=== PATIENT | female | born 1985 | race Caucasian/White ===

== ENCOUNTER → 2020-12-02 11:42 | Outpatient (REF) | payer OTHER, SELFPAY ==
--- NOTE | 2020-12-02 11:52 | ECG_ITS ---
Test Reason : CHEST PAIN Blood Pressure : / mmHG Vent. Rate : 089 BPM Atrial Rate : 089 BPM P-R Int : 148 ms QRS Dur : 082 ms QT Int : 346 ms P-R-T Axes : 070 058 046 degrees QTc Int : 420 ms Normal sinus rhythm Possible Left atrial enlargement Borderline ECG No previous ECGs available Referred By: Lotus Browning Electronically Signed By:MIS CHERRY MD
== END ==
LOC: HO.CARD 11:42
PROVIDERS: PCP Internal Medicine; Visit Provider Internal Medicine
DX: R07.9 Chest pain, unspecified (principal)
CPT/HCPCS: 93005

== ENCOUNTER → 2020-12-24 12:18 | Outpatient (BNVA) | payer OTHER, SELFPAY | PROVIDERS: PCP Internal Medicine; Visit Provider Internal Medicine | DX: R00.2 Palpitations (principal) | CPT/HCPCS: 93005; 99202 ==

== ENCOUNTER → 2021-01-10 13:12 | Outpatient (REF) | payer OTHER, SELFPAY ==
--- NOTE | 2021-01-10 13:30 | ECG_ITS ---
Hook-up date: 2021-01-10 13:28:00 Duration: 47:59:00 Test Indications: UNSPEC. TACHYCARDIA Medications: 269161 QRS complexes * Ventricular ectopics which represent % of total QRS comp. 1 Supraventricular ectopics which represent <1 % of total QRS comp. * Paced QRS complexs which represent % of total QRS comp. VENTRICULAR ECTOPY * Isolated * Bigeminal Cycles * Couplets * Runs * Beats in Runs * Beats LONGEST at * BPM at :: -- * Beats FASTEST at * BPM at :: -- SUPRAVENTRICULAR ECTOPY 1 Isolated 0 Couplets 0 Runs 0 Beats in Runs * Beats LONGEST at * BPM at :: -- * Beats FASTEST at * BPM at :: -- HEART RATES 58 MIN at 07:26:35 2021-01-12 81 AVG 143 MAX at 13:47:58 2021-01-10 LONGEST RR 1.1440 secs at 07:26:35 2021-01-12 S-T LEVELS Channel 1 - 128 mm at 13:28:00 2021-01-10 - 128 mm at 13:28:00 2021-01-10 Channel 2 - 128 mm at 13:28:00 2021-01-10 - 128 mm at 13:28:00 2021-01-10 Channel 3 - 128 mm at 03:24:71 -- - 128 mm at 03:24:71 Basic rhythm Normal sinus rhythm No long pause or profound bradycardia No dangerous dysrhythm periods Patient reported symptoms correlated with NSR Referred By: Lotus Browning Overread By: MIS CHERRY MD
== END ==
LOC: HO.CARD 13:12
PROVIDERS: Visit Provider Internal Medicine
DX: R00.0 Tachycardia, unspecified (principal)
CPT/HCPCS: 93225; 93226

== ENCOUNTER → 2021-02-05 08:37 | Outpatient (REF) | payer OTHER, SELFPAY ==
--- NOTE | 2021-02-05 08:42 | CA_ITS ---
Transthoracic Echocardiogram Patient (Last, First, Middle): Yumiko Anthony, Gender: Female Date of : 1985 Age: 35 Procedure Date: 02/05/2021 Procedure Type: Transthoracic Echocardiogram Location: OP Height: 160.02 cm Weight: 65.77 kg BSA: 1.69 m2 Heart Rate: bpm BP: 100 / 70 mmHg Client Operations Manager: Maddison MD: Valdemar Lr MD Medical Assembler: Agustin David MD Symptoms: R00.2 - Palpitations Study Quality: Good ECG Rhythm: Sinus Conclusions: - Normal study Findings Left Ventricle Normal left ventricular size, thickness, and systolic function. The visually estimated ejection fraction is between 60-65%. Diastolic function is normal for age. Right Ventricle Normal right ventricular cavity size and systolic function. Atria Both atria are normal in size. There is no evidence of interatrial shunt. Aortic Valve Normal aortic valve structure and function. There is no aortic valve stenosis. There is no aortic valve regurgitation. Mitral Valve Normal mitral valve structure and function. There is trace mitral valve regurgitation. There is no mitral valve stenosis. Pulmonic Valve The pulmonic valve is likely normal. Tricuspid Valve Normal tricuspid valve structure. There is trace tricuspid valve regurgitation. The right ventricular systolic pressure is normal. The right ventricular systolic pressure is 22 mmHg. Normal right atrial pressure. There is no evidence of pulmonary hypertension. Great Vessels All visible segments of the aorta are normal in size. The pulmonary artery was not well visualized. Venous The inferior vena cava is normal in size and collapses greater than 50% with inspiration. Pericardium/Pleural There is no evidence of pericardial effusion. Prior Study Comparison No prior study available for comparison. Measurements 2D Linear Measurements RVIDd: 2.47 RVIDd Index: 1.46 IVSd: 0.99 0.6-0.9/0.6-1.0 cm LVIDd: 4.07 3.9-5.3/4.2-5.9 cm LVIDd Index: 2.41 2.4-3.2/2.2-3.1 cm/m2 LVIDs: 2.83 2.0-3.6 cm LVPWd: 1.11 0.7-1.1 cm Ao Root: 2.70 2.1-3.5 cm LA Diam: 2.60 2.7-3.8/3.0-4.0 cm LAIDs Index: 1.54 1.5-2.3 cm/m2 LV Mass: 173.57 67-162/88-224 g LV Mass Index: 102.70 43-95/49-115 g/m2 LVOT Diam: 2.00 3.0+(-)1.3 cm 2D Systolic Function EF 4C: 66.30 >55% EF 2C: 55.00 >55% EF BiP: 60.60 >55% Mitral Valve MV Pk E: 0.60 MV PK A: 0.49 MV Decel Time: 157.00 E/A: 1.20 E'Lateral: 15.70 E'Medial: 8.92 E/E' Med: 6.70 E/E' Lat: 3.80 Aortic Valve AoV Pk Tico: 1.16 AoV Mn Tico: 0.89 AoV VTI: 0.22 AoV Pk Grad: 5.00 Aov Mn Grad: 3.00 BRUCE Cont.VTI: 2.12 LVOT LVOT Pk Tico: 0.88 LVOT Mn Tico: 0.61 LVOT VTI: 0.15 LVOT Pk Grad: 3.00 LVOT Mn Grad: 2.00 LVOT Diam: 2.00 LVOT Area: 3.14 Diastolic Function MV Pk E: 0.60 MV Pk A: 0.49 E/A: 1.20 E'Medial: 8.92 E/E' Med: 6.70 E' Laterial: 15.70 E/E' Lat: 3.80 Tricuspid Valve TR Pk Tico: 2.19 TR Pk Grad: 19.00 RA Press: 3.00 RVSP: 22.00 Great Vessels Aorta Ao Root-2D: 2.70 2.0-3.7 cm Ao Asc: 2.50 2.1-3.4 cm Ao Arch: 2.50 Updated in Other Vendor System with Status of Final Agustin David MD electronically signed on 02/07/2021 12:48:06 PM with status of Final
[2021-02-05 10:22] LABS: MANUAL DIFF FLAG NO
[2021-02-05 10:33] LABS: Basophils Absolute Auto 0.1 X10*3/uL (0.0-0.2); Basophils Percent Auto 1.5 % (0-2); Eosinophils Absolute Auto 0.8 X10*3/uL (0.0-0.4); Hematocrit 40.3 % (37-47); Hemoglobin 13.8 g/dl (12.0-16.0); Imm Gran Abs Auto 0.02 X10*3/uL (0.00-0.03); Imm Gran Pct Auto 0.3 % (0.0-0.4); Lymphocytes Absolute Auto 1.8 X10*3/uL (1.2-4.9); Lymphocytes Percent Auto 24.4 % (20-40); Mean Corpuscular HGB Conc 34.2 g/dl (31.0-35.0); Mean Corpuscular Hemoglobin 31.1 pg (27.0-33.0); Mean Corpuscular Volume 90.8 fL (80-98); Mean Platelet Volume 11.6 fL (9.4-12.3); Monocytes Absolute Auto 0.5 X10*3/uL (0.1-1.2); Monocytes Percent Auto 6.4 % (2-11); Neutrophils Absolute Auto 4.2 X10*3/uL (2.0-8.3); Neutrophils Percent Auto 56.4 % (45-73); Platelet Count 257 X10*3/uL (160-400); Red Blood Count 4.44 X10*6/uL (4.20-5.50); Red Cell Distribution Width 11.9 % (11.0-16.0); White Blood Count 7.5 X10*3/uL (4.8-10.8)
[2021-02-05 10:51] LABS: Alanine Aminotransferase 15 U/L (0-31); Albumin Level 4.5 g/dL (3.5-5.0); Alkaline Phosphatase 64 U/L (39-117); Anion Gap 12 (12-20); Aspartate Amino Transferase 16 U/L (5-31); Bilirubin Total 0.9 mg/dL (0.0-1.0); Blood Urea Nitrogen 15 mg/dL (9-16); Calcium 9.3 mg/dL (8.4-10.2); Carbon Dioxide 26 mmol/L (22-29); Chloride 106 mmol/L (96-108); Cholesterol 150 mg/dL; Estimated Glomerular Filt Rate > 60; Glucose Fasting 85 mg/dL (60-99); HDL Cholesterol 41 mg/dL; LDL Cholesterol Calculated 100 mg/dl; Sodium 140 mmol/L (135-145); Total Protein 7.2 g/dL (6.5-8.0); Triglycerides 45 mg/dL
== END ==
LOC: HO.CARD 08:37
PROVIDERS: Internal Medicine; Visit Provider Internal Medicine
DX: R07.9 Chest pain, unspecified (principal); R00.2 Palpitations; E78.5 Hyperlipidemia, unspecified; D64.9 Anemia, unspecified
CPT/HCPCS: 36415; 80053; 80061; 85025; 93306

== ENCOUNTER → 2021-02-10 11:30 | Outpatient (BNVA) | payer OTHER, SELFPAY | PROVIDERS: PCP Internal Medicine; Visit Provider Nurse Practitioner Family ==

== ENCOUNTER → 2021-09-08 13:14 | Outpatient (BNVA) | payer OTHER, SELFPAY | PROVIDERS: Visit Provider Advanced Practice Midwife ==

== ENCOUNTER 2023-07-02 14:30 | Outpatient (REF) | payer OTHER, SELFPAY ==
[2023-07-02 18:33] LABS: CT PCR NOT DETECTED (Not Detect.); NG PCR NOT DETECTED (Not Detect.)
[2023-07-03 15:34] LABS: BV Int Neg Control Negative (Negative); BV Int Pos Control Positive (Positive)
[2023-07-06 21:18] LABS: HPV mRNA E6/E7 rflx Not Detected (Not Detected)
== END 2023-07-02 14:31 | disposition home or self-care (01) ==
LOC: HO.LNP 14:30
PROVIDERS: PCP Internal Medicine; Visit Provider Advanced Practice Midwife
DX: Z01.419 Encounter for gynecological examination (general) (routine) without abnormal findings (principal); Z11.51 Encounter for screening for human papillomavirus (HPV); Z20.2 Contact with and (suspected) exposure to infections with a predominantly sexual mode of transmission
CPT/HCPCS: 0353U; 87480; 87510; 87624; 87660; 88142; 99395

== ENCOUNTER 2023-07-02 14:30 | Outpatient (AMB) | payer OTHER, SELFPAY ==
--- NOTE | 2023-07-02 14:44 | MHC.OFFVIS ---
Intake Vital Signs 07/02/23 14:47 Height 5 ft 3 in Weight 137 lb BMI 24.3 BP 110/68 Intake Visit Reasons: RELAY SHOP TESTER annual exam/DO NOT RS Intake Note: wants std screens The patient agreed to use of a medical administrator during this encounter. Scribed for RANDALL Wilcox by Erendira Haskins medical administrator, on 07/02/2023 at 3:12 pm EST. Nursing Home Social Worker Required: Yes Nursing Home Social Worker Language: Fire Investigation Lieutenant Name: Katlin ORTEGA Information Interpreted: non-clinical & clinical Jewelry Polisher: Jewelry Polisher Present (Katlin ORTEGA) Accompanied by: Self / Same As Patient Allergies sumatriptan Allergy (Intermediate, Verified 07/02/23 14:54) dizziness, headache Is last menstrual period known: Yes Last menstrual period: 06/12/23 HPI HPI Comments History of Present Illness Details She is a premenopausal woman presenting for annual exam. She admits to eating healthy and tries to stay active with exercise. Currently sexually active. Uses condoms for BC. Is interested in BC; denies migraines. Reports regular monthly menses lasting 3-5 days. Denies vaginal itching and irritation. STD screening and blood work per pt request. Denies family hx of breast, colon and ovarian cancer. Last pap smear 03/31/19. Pt preferred to do pap early this year due to anxiety and worried about FMH of cervical cancer. PFSH Medical History LESLIE (generalized anxiety disorder) Neck pain Lip lesion Tachycardia Chest pain Encounter for pre-operative examination Back pain Mild asthma Migraines Surgical History Previous section Family History Father CAD (coronary artery disease) Mental health disorder Hypothyroidism Mother Hypertension Maternal Aunt Uterus cancer Maternal Uncle Throat cancer Social History Housing: Apartment Alcohol intake: never Patient Tobacco Use Status: Never used Tobacco e-Cigarette/Vaping Use: Never Used Second Hand Smoke Exposure: No service: No Current occupational status: unemployed Cognitive needs: No Hearing needs: No Vision needs: No Female Reproductive History Menstrual Date of last menstrual period: 06/12/23 control method: condoms Total pregnancies: 1 Full term: 1 Number of Living Children: 1 Date of last pap smear: 03/31/19 Physical Exam Vital Signs: Last Vital Signs BP 110/68 07/02/23 14:47 BMI result Body Mass Index 24.3 Const General: cooperative, healthy appearing, no acute distress, well developed and alert Orientation/consciousness: patient oriented x3 HEENT Head: Yes normal to inspection Eyes General: appearance normal, both eyes and all related structures Neck Neck: Yes normal visual inspection Thyroid: Thyroid normal Chest Chest palpation & inspection: normal inspection of the chest Breast/axilla inspection: normal inspection of the breasts (no puckering, dimpling, peau de orange, retraction, discharge, masses) Breast/axilla palpation: normal palpation of the breasts Resp Effort & Inspection: normal respiratory effort GI Inspection: Yes normal to inspection Palpation (GI): Soft to palpation (to palpation) Rectal Exam - Female: deferred General: Yes bladder normal to inspection External Female Exam: normal external appearance and normal appearance of the urethra Speculum Exam - Vagina: normal appearance of the vagina, normal palpation and normal vaginal discharge Speculum Exam - Cervix: normal appearance of the cervix, normal palpation and Other cervical findings present (bled slightly with pap) Bimanual exam- vagina & uterus: normal palpation and normal palpation Bimanual Exam- Adnexa, other: normal adnexae and no masses Skin General skin exam: no rashes or lesions noted Neuro General: patient oriented x3 Cognition (Neuro): normal cognition Extrem General: Yes normal to inspection Psych Attitude: cooperative Thought process: Normal thought process present Assessment & Plan Assessment & Plan (1) Well woman exam with routine gynecological exam: Code(s): Z01.419 - Encounter for gynecological examination (general) (routine) without abnormal findings Plan: Discussed: Current recommendations for pap smears per ASCCP guidelines. Breast awareness and periodic self breast exams. Maintaining a healthy lifestyle including a well balanced diet and routine exercise. Encouraged to use condoms for STD and prevention. All of her questions and concerns were addressed to the best of my ability. RTO in one year for AG. (2) Potential exposure to STD: Code(s): Z20.2 - Contact with and (suspected) exposure to infections with a predominantly sexual mode of transmission Plan: BV testing and GC/CT panel today. STD blood work ordered. Await results and treat accordingly. (3) control counseling: Code(s): Z30.09 - Encounter for other general counseling and advice on contraception Plan: Advised to schedule BC consult visit. BC literature given. Orders: Orders Hepatitis C Antibody Today Z20.2 - Contact with and (suspected) exposure to infections with a predominantly sexual mode of transmission Hepatitis B Core Antibody Today Z20.2 - Contact with and (suspected) exposure to infections with a predominantly sexual mode of transmission HIV Ab/Ag Today Z20.2 - Contact with and (suspected) exposure to infections with a predominantly sexual mode of transmission Syphilis Screen Today Z20.2 - Contact with and (suspected) exposure to infections with a predominantly sexual mode of transmission Coding Level of Care Code Est Pt Prev Care 18-39y(72163) Diagnoses Well woman exam with routine gynecological exam Z01.419 Potential exposure to STD Z20.2 control counseling Z30.09
[2023-07-02 14:47] VITALS: BP 110/68; BMI 24.3
== END 2023-07-02 15:49 | disposition home or self-care (01) ==
PROVIDERS: PCP Internal Medicine; Visit Provider Advanced Practice Midwife
DX: Z01.419 Encounter for gynecological examination (general) (routine) without abnormal findings (principal); Z20.2 Contact with and (suspected) exposure to infections with a predominantly sexual mode of transmission; Z30.09 Encounter for other general counseling and advice on contraception
CPT/HCPCS: 99395

== ENCOUNTER 2023-07-13 11:02 | Outpatient (REF) | payer OTHER, SELFPAY ==
[2023-07-14 08:20] LABS: HIV AB/AG Nonreactive (Nonreactive); HIV Num 1 0.05 S/CO (0.00-0.99); Hepatitis B Core Antibody Nonreactive (Nonreactive); ~HepC Num1 0.07 S/CO (0.00-0.79); ~Hepatitis C Antibody Nonreactive (Nonreactive)
[2023-07-14 08:27] LABS: Syphilis Screen Nonreactive (Nonreactive)
== END 2023-07-13 11:03 | disposition home or self-care (01) ==
LOC: HO.LAB 11:02
PROVIDERS: PCP Internal Medicine; Visit Provider Advanced Practice Midwife
DX: Z30.09 Encounter for other general counseling and advice on contraception (principal)
CPT/HCPCS: 36415; 81025; 86704; 86780; 86803; 87389; 99212

== ENCOUNTER 2023-07-13 11:13 | Outpatient (AMB) | payer OTHER, SELFPAY ==
--- NOTE | 2023-07-13 11:23 | MHC.OFFVIS ---
Intake Vital Signs 07/13/23 11:36 Height 5 ft 3 in Weight 136 lb 10.986 oz BMI 24.2 BP 108/64 Intake Visit Reasons: control consult per Jojo Special Officer Automat Required: Yes Special Officer Automat Language: Pack Mule Worker Name: Katlin ORTEGA Information Interpreted: non-clinical & clinical Accompanied by: Self / Same As Patient Allergies sumatriptan Allergy (Intermediate, Verified 07/13/23 11:36) dizziness, headache Is last menstrual period known: Yes Last menstrual period: 07/10/23 HPI HPI Comments History of Present Illness Details Patient is here today for a control consult. She reports her menses are regular lasting 3-6 days. Currently on day 4 of her cycle. She denies any contraindications to control such as: migraines with aura, history of DVT or pulmonary emboli, high blood pressure, liver disease, thrombolic disorders, Lupus, +MACKENZIE, or smoking. [facility] Medical History LESLIE (generalized anxiety disorder) Neck pain Lip lesion Tachycardia Chest pain Encounter for pre-operative examination Back pain Mild asthma Migraines Surgical History Previous section Family History Father CAD (coronary artery disease) Mental health disorder Hypothyroidism Mother Hypertension Maternal Aunt Uterus cancer Maternal Uncle Throat cancer Social History Housing: Apartment Alcohol intake: never Patient Tobacco Use Status: Never used Tobacco e-Cigarette/Vaping Use: Never Used Second Hand Smoke Exposure: No service: No Current occupational status: unemployed Cognitive needs: No Hearing needs: No Vision needs: No Female Reproductive History Menstrual Date of last menstrual period: 07/10/23 Physical Exam Vital Signs: Last Vital Signs BP 108/64 07/13/23 11:36 BMI result Body Mass Index 24.2 Const General: cooperative, healthy appearing, comfortable, no acute distress and well developed Psych Appearance: well kempt Attitude: cooperative Results AMB Test Urine AMB Test Urine Negative Last Edit by Katlin Rojo CMA on 07/13/23 11:40 Results Reviewed Results Reviewed: Laboratory Last Values Tst Clinic Negative 07/13/23 11:39 Assessment & Plan Assessment & Plan (1) control counseling: Code(s): Z30.09 - Encounter for other general counseling and advice on contraception Plan: Discussed: control options and reviewed the CDC chart on effectiveness of family planning methods. She is interested in the Mirena IUD. Booklet given, plan further discussion with her follow up. She opted to book the insertion appointment. OTC medication use, Ibuprofen 600 mg (3-200mg tablets), with food, one hour before her appointment time. Orders: Orders AMB HCG Urine Test Today Z32.02 - Encounter for test, result negative Coding Level of Care Code Est Pt Level 3 (80099) Diagnoses control counseling Z30.09
[2023-07-13 11:36] VITALS: BP 108/64; BMI 24.2
== END 2023-07-13 11:57 | disposition home or self-care (01) ==
PROVIDERS: PCP Internal Medicine; Visit Provider Advanced Practice Midwife
DX: Z32.02 Encounter for pregnancy test, result negative (principal); Z30.09 Encounter for other general counseling and advice on contraception
CPT/HCPCS: 99213

== ENCOUNTER 2023-07-15 14:41 | Outpatient (AMB) | payer OTHER, SELFPAY ==
[2023-07-15 14:45] VITALS: BP 120/82; PULSE 88; O2SAT 99; BMI 24.4
--- NOTE | 2023-07-15 14:45 | A.OFFPC_ITS ---
Vital Signs 07/15/23 14:45 Height 5 ft 3 in Weight 138 lb 0.6 oz BMI 24.4 BP 120/82 Blood Pressure Location Lt brachial Position Sitting Pulse 88 Pulse Source Pulse Oximeter Pulse Oximetry (%) 99 Oxygen Delivery Method Room Air Intake Visit Reasons: Rescheduled from 06/15/23 visit Intake Note: pt states follow up Supervisor Housecleaner Required: Yes Supervisor Housecleaner Language: British Allergies sumatriptan Allergy (Intermediate, Verified 07/15/23 14:58) dizziness, headache Medication List - Last Reconciled 07/15/23 by XENIA Case albuterol sulfate 90 mcg/actuation (ProAir RespiClick) 1 inh inhalation Q4-6H PRN 30 days cetirizine 10 mg PO DAILY 90 days duloxetine 20 mg PO BID 90 days hydrocortisone 2.5% topical BID PRN hydroxyzine HCl 25 mg PO BEDTIME PRN 30 days loratadine 10 mg PO DAILY PRN 90 days nabumetone 750 mg PO BID 90 days risperidone 0.5 mg PO BEDTIME 90 days trazodone 50 mg PO BEDTIME PRN 90 days Tobacco use date assessed: 07/15/23 Dental Screening Dental Screen Date: 07/15/23 Did you have a dental visit in the last 12 months?: Yes Did you have a dental problem in the last 6 months where you did not have access to dental care?: No Was dental information given to patient?: Patient has dentist HPI Rescheduled from 06/15/23 visit HPI Details Patient is a 37-year-old female who presents today for a routine follow-up. Patient of Dr. Roe. Medical history significant for migraines, asthma-needs refill albuterol inhaler, anxiety - followed by Psychiatry who manages mental health medications. Patient reports intermittent dizziness for the past some time, will check blood work. Reports mild sore throat since yesterday, did not use anything for this. She also reports spider veins both lower extremities and would like evaluation for this. Patient is a British- speaking and Montse was helping with interpretation. [facility] Medical History LESLIE (generalized anxiety disorder) Neck pain Lip lesion Tachycardia Chest pain Encounter for pre-operative examination Back pain Mild asthma Migraines Surgical History Previous section Family History Father CAD (coronary artery disease) Mental health disorder Hypothyroidism Mother Hypertension Maternal Aunt Uterus cancer Maternal Uncle Throat cancer Social History Housing: Apartment Alcohol intake: never Patient Tobacco Use Status: Never used Tobacco e-Cigarette/Vaping Use: Never Used Second Hand Smoke Exposure: No service: No Current occupational status: unemployed Cognitive needs: No Hearing needs: No Vision needs: No Questionnaire PHQ-9 Over the last 2 weeks, how often have you been bothered by any of the following problems? 1. Little interest or pleasure in doing things: not at all 2. Feeling down, depressed, or hopeless: not at all 3. Trouble falling or staying asleep, or sleeping too much: not at all 4. Feeling tired or having little energy: not at all 5. Poor appetite or overeating: not at all 6. Feeling bad about yourself - or that you are a failure or have let yourself or your family down: not at all 7. Trouble concentrating on things, such as reading the newspaper or watching television: not at all 8. Moving or speaking so slowly that other people could have noticed. Or the opposite - being so fidgety or restless that you have been moving around a lot more than usual: not at all 9. Thoughts that you would be better off or of hurting yourself in some way: not at all Total score: 0 Depression Screening Interpretation: Negative Depression Screening Done: Yes 76503 - PHQ-9 Billing: Yes Source: Developed by Drs. Hernan Castillo, Milton Mcintosh and colleagues, with an educational froy from [employer]. Thrive Questionnaire Date Thrive assessed: 03/31/22 AUDIT C Alcohol Use Questionnaire (AUDIT-C) 1. How often do you have a drink containing alcohol?: Never Total Score: 0 Score Reviewed/Action Taken: No LESLIE-7 AMB Questionnaire LESLIE-7 Date LESLIE - 7 assessed: 07/15/23 Source: Developed by Drs. Hernan Castillo, Milton Mcintosh and colleagues, with an educational froy from [employer]. Review of Systems Const Denies body aches, Denies chills, Denies fever(s) and Denies headache(s) ENT Reports dizziness (Intermittent), Denies otalgia, Denies headache(s), Denies nasal discharge, Denies sinus pain and Reports sore throat Card Denies chest pain, Denies edema, Denies lightheadedness and Denies dyspnea Resp Denies cough, Denies dyspnea and Denies wheezing GI Denies abdominal pain, Denies constipation, Denies diarrhea, Denies nausea and Denies vomiting Denies dysuria Musc Denies myalgias Skin/Breast Reports as per HPI and Denies rash Neuro Reports dizziness (Intermittent) and Denies headache(s) Aller/Immun Denies wheezing Physical exam (Primary Care) Vital Signs: Last Vital Signs Pulse 88 07/15/23 14:45 BP 120/82 07/15/23 14:45 Pulse Ox 99 07/15/23 14:45 Oxygen Delivery Method Room Air 07/15/23 14:45 BMI result Body Mass Index 24.4 Tobacco/Smoking Status: Tobacco use Status Tobacco use date assessed 07/15/23 07/15/23 14:50 Patient Tobacco Use Status Never used Tobacco 07/15/23 14:50 e-Cigarette/Vaping Use Never Used 07/15/23 14:50 PHQ-9: PHQ-9 Score PHQ-9: Total score 0 07/15/23 14:50 Depression Screening Interpretation: Negative Thrive Assessment: Date of Thrive Assessment Date Thrive assessed 03/31/22 07/15/23 14:50 Const General: cooperative and no acute distress Orientation/consciousness: patient oriented x3 HENMT Other: Very mild OP erythema noted, no exudate Head: Yes normocephalic and Yes atraumatic Face and sinus: Yes sinuses nontender Mouth: moist mucous membranes Eyes General: appearance normal, both eyes and all related structures Neck Neck: Yes normal visual inspection, Yes full ROM and Yes no lymphadenopathy Resp Effort & Inspection: normal respiratory effort and able to speak in complete sentences Auscultation: clear to auscultation bilaterally, no crackles, no rales, no rhonchi and no wheezes Cardio Rate: regular rate Rhythm: regular rhythm Heart sounds: S1 normal heart sound present and S2 normal heart sound present GI Auscultation: normal bowel sounds Skin Other: Spider veins to bilateral extremity Neuro General: patient oriented x3 Gait exam (Neuro): Normal gait present Extrem General: Yes full ROM and No edema Assessment and Plan Assessment & Plan (1) Spider veins of both lower extremities: Code(s): I83.93 - Asymptomatic varicose veins of bilateral lower extremities Plan: Vascular surgery referral for an evaluation and treatment (2) Back pain: Code(s): M54.9 - Dorsalgia, unspecified Plan: Stable with nabumetone b.i.d. p.r.n. (3) Mild asthma: Code(s): J45.909 - Unspecified asthma, uncomplicated Plan: Stable Patient requested refill on albuterol inhaler (4) Sore throat: Code(s): J02.9 - Acute pharyngitis, unspecified Plan: Encouraged patient to try [id number] throat lozenges She did not try anything for sore throat Notify office if no improvement Plan Keep appointment with PCP as scheduled or follow-up sooner as needed Blood work ordered due to intermittent dizziness Orders: Orders Comprehensive Met. Panel Today J45.909 - Unspecified asthma, uncomplicated TSH reflex Free T4 Today J45.909 - Unspecified asthma, uncomplicated Complete Blood Count no Diff Today J45.909 - Unspecified asthma, uncomplicated Vitamin D 25-OH Total Today J45.909 - Unspecified asthma, uncomplicated Referrals Vascular Surgery Referral I83.93 - Asymptomatic varicose veins of bilateral lower extremities Medications: Refilled nabumetone 750 mg PO BID 90 days 180 tabs 0RF albuterol sulfate 90 mcg/actuation (ProAir RespiClick) 1 inh inhalation Q4-6H 30 days PRN 1 ea 0RF shortness of breath or wheezing albuterol sulfate 90 mcg/actuation (ProAir RespiClick) 1 inh inhalation Q4-6H 30 days PRN 1 ea 0RF shortness of breath or wheezing nabumetone 750 mg PO BID 90 days 180 tabs 0RF M54.9 - Dorsalgia, unspecified Coding Level of Care Code Est Pt Level 4 (28660) Diagnoses Spider veins of both lower extremities I83.93 Back pain M54.9 Mild asthma J45.909 Sore throat J02.9
== END 2023-07-15 15:13 | disposition home or self-care (01) ==
PROVIDERS: PCP Internal Medicine; Visit Provider Nurse Practitioner Family
DX: I83.93 Asymptomatic varicose veins of bilateral lower extremities (principal); M54.9 Dorsalgia, unspecified; J45.909 Unspecified asthma, uncomplicated; J02.9 Acute pharyngitis, unspecified
CPT/HCPCS: 99214

== ENCOUNTER 2023-07-15 15:18 | Outpatient (REF) | payer OTHER, SELFPAY ==
[2023-07-15 16:17] LABS: Hematocrit 40.1 % (37.0-47.0); Hemoglobin 13.5 g/dl (12.0-16.0); Mean Corpuscular HGB Conc 33.7 g/dl (31.0-35.0); Mean Corpuscular Hemoglobin 30.5 pg (27.0-33.0); Mean Corpuscular Volume 90.7 fL (80.0-98.0); Mean Platelet Volume 11.1 fL (9.4-12.3); Platelet Count 277 X10*3/uL (160-400); Red Blood Count 4.42 X10*6/uL (4.20-5.50); Red Cell Distribution Width 11.9 % (11.0-16.0); White Blood Count 9.6 X10*3/uL (4.8-10.8)
[2023-07-15 16:49] LABS: Alanine Aminotransferase 12 U/L (0-31); Albumin Level 4.4 g/dL (3.5-5.0); Alkaline Phosphatase 73 U/L (39-117); Anion Gap 13 (12-20); Aspartate Amino Transferase 15 U/L (5-31); Bilirubin Total 0.7 mg/dL (0.0-1.0); Blood Urea Nitrogen 11 mg/dL (9-16); Calcium 9.7 mg/dL (8.4-10.2); Carbon Dioxide 27 mmol/L (22-29); Chloride 104 mmol/L (96-108); Estimated Glomerular Filt Rate > 60; Glucose Random 93 mg/dL (60-115); Potassium 3.9 mmol/L (3.3-5.1); Sodium 140 mmol/L (135-145); Total Protein 7.3 g/dL (6.5-8.0)
[2023-07-15 17:05] LABS: TSH reflex Free T4 0.66 uIU/mL (0.32-4.0); Vitamin D 25-OH Total 35.4 ng/mL (>30)
== END 2023-07-15 15:19 | disposition home or self-care (01) ==
LOC: HO.LAB 15:18
PROVIDERS: PCP Internal Medicine; Visit Provider Nurse Practitioner Family
DX: J45.909 Unspecified asthma, uncomplicated (principal)
CPT/HCPCS: 36415; 80053; 82306; 84443; 85027